=== PATIENT | female | born 1955 | race Caucasian/White ===

== ENCOUNTER 2018-01-24 15:20 | Emergency (ER) | payer OTHER ==
[2018-01-24] MEDS ORDERED: Ketorolac 30 MG/ML SDV IM ONE (15:58)
--- NOTE | 2018-01-24 16:01 | EDM.PDOC ---
ED HPI GENERAL MEDICAL PROBLEM - General Chief Complaint: General Stated Complaint: FELL HURT RIBS Time Seen by Provider: 01/24/18 15:55 Source of Information: Reports: Patient, RN Notes Reviewed History Limitations: Reports: No Limitations - History of Present Illness INITIAL COMMENTS - FREE TEXT/NARRATIVE: 62-year-old female presents to the emergency department today complaint of rib pain chest pain unfortunately she fell earlier today while stepping off a pontoon and she hit the side rail, states it hurts to take a deep breath otherwise, she also injured her right leg when she had a pontoon and has a laceration over her chin Chest Pain Score (Numeric/FACES): 5 - Related Data Allergies Allergy/AdvReac Type Severity Reaction Status Date / Time Penicillins Allergy Cannot Verified 01/24/18 15:46 Remember Home Meds: Home Meds Citalopram Hydrobromide [Celexa] 10 mg PO DAILY 01/24/18 [History] atorvaSTATin [Lipitor] 10 mg PO DAILY 01/24/18 [History] Past Medical History Cardiovascular History: Reports: High Cholesterol Genitourinary History: Reports: Other (See Below) Other Genitourinary History: herniated bladder 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: Musculoskeletal History: Reports: Arthritis Psychiatric History: Reports: Depression, OCD Social & Family History - Tobacco Use Smoking Status *Q: Never Smoker - Caffeine Use Caffeine Use: Reports: Soda - Recreational Drug Use Recreational Drug Use: No ED ROS GENERAL - Review of Systems Review Of Systems: See Below Respiratory: Reports: Shortness of Breath (With a deep breath) Cardiovascular: Reports: Chest Pain ED EXAM, GENERAL - Physical Exam Exam: See Below Exam Limited By: No Limitations General Appearance: Alert, WD/WN, No Apparent Distress Respiratory/Chest: No Respiratory Distress, Lungs Clear, Normal Breath Sounds, No Accessory Muscle Use, Other (Tenderness to palpation across T6 to T8 level) Cardiovascular: Regular Rate, Rhythm, No Murmur GI/Abdominal: Soft, Non-Tender Front/Back Body Diagram: 1 - 3 cm laceration completely through the dermis ED GENERAL MEDICAL PROCEDURES - Laceration/Wound Repair Right Leg Lac/wound length in cm: 2.5 Appearance: Subcutaneous, Linear, Clean Distal NVT: Neuro & Vascular Intact, No Tendon Injury Anesthetic Type: Local Local Anesthesia - Lidocaine (Xylocaine): 1% with EPI Local Anesthetic Volume: 2cc Skin Prep: Saline Saline irrigation (cc's): 60 Exploration/Debridement/Repair: Wound Explored, In a Bloodless Field, Explored to Base Closed with: Sutures Suture Size: 4-0 # of Sutures: 1 Suture Type: Running Suture Size: 4-0 # of Sutures: 1 Repaired with: Vicryl Sterile Dressing Applied: Nurse Tetanus Status Addressed: Yes (2014) Complications: No Course - Vital Signs Last Recorded V/S: Last Vital Signs Temp 98.1 F 01/24/18 15:43 Pulse 81 01/24/18 15:43 Resp 20 01/24/18 15:43 BP 166/69 H 01/24/18 15:43 Pulse Ox 97 01/24/18 15:43 - Orders/Labs/Meds Orders: Active Orders 24 hr Category Date Time Status Chest 2V [CR] Urgent Exams 01/24/18 15:59 Taken Meds: Medications Discontinued Medications Generic Name Dose Route Start Last Admin Trade Name Freq PRN Reason Stop Dose Admin Bacitracin 1 dose 01/24/18 16:11 01/24/18 16:17 Bacitracin Oint 1 Gm TOP 01/24/18 16:12 1 dose ONETIME ONE Administration Ketorolac Tromethamine 30 mg 01/24/18 15:58 01/24/18 16:06 Toradol IM 01/24/18 15:59 30 mg ONETIME ONE Administration Lidocaine/Epinephrine 20 ml 01/24/18 16:11 01/24/18 16:14 Xylocaine 1% With Epinephrine 1:100,000 SUBCUT 01/24/18 16:12 2 ml NOW STA Administration Departure - Departure Time of Disposition: 16:30 Disposition: Home, Self-Care 01 Condition: Good Clinical Impression: Rib pain Laceration of right lower leg Qualifiers: Encounter type: initial encounter Qualified Code(s): S81.811A - Laceration without foreign body, right lower leg, initial encounter - Discharge Information Referrals: PCP,None [Primary Care Provider] - Forms: ED Department Discharge Additional Instructions: Suture removal in 10 days, follow wound care instruction sheet, use Advil as needed for pain control, Please followup with your primary care provider in 3- 5 days if not better, please call return to the emergency department with worsening of symptoms. - My Orders Last 24 Hours: My Active Orders 01/24/18 15:59 Chest 2V [CR] Urgent - Assessment/Plan Last 24 Hours: My Active Orders 01/24/18 15:59 Chest 2V [CR] Urgent Plan: Assessment Acuity = acute Site and laterality = chest wall to fall, 2.5 cm laceration right leg completely through the dermis Etiology = chest wall trauma Manifestations = none Location of injury = Home Lab values = chest x-ray I did review films myself I cannot appreciate any acute process, the official read from radiology is pending Plan Suture removal in 10 days, follow wound care instruction sheet, use nonsteroidal anti-inflammatories for pain This note was dictated using [employer] voice recognition software please call with any questions on syntax or grammar.
[2018-01-24] MEDS ORDERED: Lidocaine 1% with EPINEPHrine 1:100,000 50 ML MDV SUBCUT STA (16:11)
[2018-01-24] MEDS ORDERED: Bacitracin Oint 1 GM U/D Packet TOP ONE (16:11)
--- NOTE | 2018-01-25 08:56 | CR ---
Chest 2V FINDINGS: There is hyperinflation consistent with COPD. The heart and vascular structures are normal in appearance. No infiltrates or effusions are demonstrated. The skeletal structures are unremarkable . IMPRESSION: 1. COPD. 2. No acute findings.
== END 2018-01-24 16:48 | disposition home or self-care (01) ==
LOC: JP.ED 15:20
DX: S81.811A Laceration without foreign body, right lower leg, initial encounter (principal); E78.00 Pure hypercholesterolemia, unspecified; Z88.0 Allergy status to penicillin; V94.0XXA Hitting object or bottom of body of water due to fall from watercraft, initial encounter
CPT/HCPCS: 12001; 71046; 96372; 99284; J1885